=== PATIENT | male | born 1970 | race Caucasian/White ===

== ENCOUNTER 2016-11-30 11:35 | Emergency (ER) | payer OTHER ==
[~2016-11-30] VITALS: Ht 177.8 cm; Wt 100.0 kg
[2016-11-30 11:37] VITALS: BP 129/85; PULSE 87; RESP 18; O2SAT 97
--- NOTE | 2016-11-30 11:49 | ED.REPORT ---
HPI-Neck Pain Free Text HPI Notes Nov 30, 2016 ED Provider: Ulices Chandler History of Present Illness: 45yo male with R sided facial numbness x 1 day. He has a hx. of TMJ, chewed a lot of gum yesterday and had R sided jaw pain yesterday. Advil and local ice yesterday seemed to aleviate pain, but has some R lateral lip numbness today. No fever, rash, weekness. No hx. of shingles. Called nurse hotline today who advised ОЛЬГА evaluation to r/o stroke. Nursing Notes Stated Complaint: POSS STROKE Chief Complaint: Neuro Symptoms/ Deficits Nursing Notes Reviewed: Yes Allergies: Coded Allergies: No Known Allergies (Verified Allergy, Unknown, 11/30/16) No Active Prescriptions or Reported Meds General Time Seen by Provider: 11:48 Chief Complaint Other Hx Obtained From: Patient Arrived By: Walk-in Onset Occurred: Yesterday Symptom Duration: Constant Progression Since Onset: Gradually improving Radiation: : Does not radiate Severity: Current: No pain currently Severity: Maximum: Mild Associated with: Denies: Fever, Head injury, Sore throat, Stiff neck Pertinent Negative: Pt denies other symptoms Relieved by: OTC medications, Rest Recent Healthcare: No recent doctor visit Similar Sx Previous: No Risk-Neck Pain High Risk for Injury RF Statements: Risk factors reviewed Nexus C-Spine Criteria No post midline tendernes, Not intoxicated, Normal level or alertness, No distracting injuries Past Medical History Past Medical History None Past Surgical History None Family History Noncontributory Smoking History Never Smoker Social History Drug Use: Denies drug use Other Social History: Good social support, , Local resident Ambulatory Status Independent Review of Systems Constitutional: Denies: Chills, Fever, Malaise Eyes: Denies: Blurred right Ears / Nose / Throat: Denies: Ear drainage right Respiratory: Denies: Shortness of breath Cardiovascular: Denies: Chest pain GI: Denies: Abdominal pain Neurologic: Reports: Numbness (R cheek) Physical Exam Initial Vital Signs Vital Signs (First) Date Time Temp Pulse Resp B/P Pulse Ox O2 Delivery O2 Flow Rate FiO2 11/30/16 11:37 36.9 87 18 129/85 97 Room Air Initial VS: Vital signs normal Head / Eyes: Atraumatic ENT: Mucous membranes moist Respiratory: Breath sounds normal Cardiovascular: Regular rate & rhythm Abdomen / GI: Soft Extremities: Neuro intact General/Constitutional: Not toxic appearing Neck: Supple, No meningismus, Full range of motion, No adenopathy Neurologic: Oriented X3, Speech NL, No motor deficits, No sensory deficits No numbess of forehead Re-Eval/Medical Decision Med Decision/Clinical Course Pt. evaluated by Dr. Gibson who concurs no CVA occuring at present. No obsious [place] Palsy, shingles, or trigeminal neuralgia findings. Watchful waiting advised Discharge & Departure Primary Impression: Facial numbness Disposition: Home Patient Instructions: Martin's Palsy (ED) Additional Instructions: No gum chewing, use local heat and Advil as needed. Follow up if not improving , return to ER if worse. Referrals: John Beltran MD (PCP) 2-3 days if not improving as expected EDSupervising Provider for APC: Robin Gibson DO copies to: John Beltran MD, Christopher R [facility] Nov 30, 2016 11:49
[2016-11-30 12:21] VITALS: BP 119/85; PULSE 74; RESP 16; O2SAT 97
== END 2016-11-30 12:23 | disposition home or self-care (01) ==
LOC: SED 11:35
DX: R20.0 Anesthesia of skin (principal)